=== PATIENT | female | born 1950 | race Caucasian/White ===

== ENCOUNTER 2016-10-12 10:49 | Emergency (ER) | payer OTHER ==
[~2016-10-12] VITALS: Ht 165.1 cm; Wt 88.8 kg
[~2016-10-12 10:49] MED LIST: ADULT LOW DOSE81 M1 PO; ADVAIR HFA120 INHALA IH; AMBIEN5 MG PO; ANTI-FUNGAL141 GM TP; AQUAPHOR OINTM105 GM TP; ASPIR-TRIN325 M1 PO; ASPIRIN EC325 MG PO; ASPIRIN325 MG PO; ATARAX,VISTARIL25 MG PO; ATIVAN0.5 MG PO; AUGMENTIN875 MG PO; CATAPRES0.1 MG PO; CLEOCIN300 MG PO; COLACE100 MG PO; COUMADIN1 MG PO; COUMADIN3 MG PO; COUMADIN4 MG PO; CYCLOBENZAPRINE5 MG PO; DICYCLOMINE HCL10 MG PO; DILAUDID2 MG PO; DURAGESIC25 MCG TD; DURAGESIC50 MCG TD; DURAGESIC75 MCG TD; ECPIRIN325 M1 PO; ESTRACE42.5 GM VG; FENTANYL1 EAC1 TD; FIORICET 50-301 EACH PO; FLEXERIL10 MG PO; FLUOXETINE HCL10 MG PO; FUROSEMIDE40 MG PO; GABAPENTIN100 MG PO; GABAPENTIN300 MG PO; HYDROCODON-ACE1 EAC8 PO; HYDROXYZINE HCL25 MG PO; IMITREX50 MG PO; K-DUR20 MEQ PO; KENALOG,ARISTOC80 GM TP; KLONOPIN0.5 M1 PO; KLONOPIN1 MG PO; KLONOPIN2 MG PO; LAMICTAL25 MG PO; LASIX40 MG PO; LEXAPRO20 MG PO; LIDODERM 5% P1 PATCH TD; LITE COAT ASPI325 M1 PO; LORTAB 10-3251 EACH PO; LOVENOX80 MG/0.8 SC; LUNESTA3 MG PO; MIRALAX255 GM PO; MOBIC15 MG PO; MOTRIN600 MG PO; NAPROXEN500 MG PO; NEURONTIN300 MG PO; NORCO 5/3251 TABLET PO; OMEPRAZOLE20 MG PO; PAROXETINE HCL30 MG PO; PERCOCET 10/1 TABLET PO; PRAVACHOL20 MG PO; PRAVASTATIN SOD40 MG PO; PREDNISONE20 MG PO; PREMARIN VAGI42.5 GM VG; PRILOSEC20 MG PO; PRILOSEC40 MG PO; PROAIR HFA8.5 GM IH; PROMETHAZINE HC25 M1 PO; PROTONIX20 MG PO; QUILLICHEW ER20 MG PO; REMERON45 MG PO; RISPERDAL0.25 MG PO; TIZANIDINE HCL4 M1 PO; VICODIN 5-3001 EACH PO; VICODIN ES 7.51 EAC1 PO; VICODIN HP 11 TABLET PO; VITAMIN D50000 UNI4 PO; WARFARIN PO; WELLBUTRIN SR150 MG PO; WESTCORT15 G1 TP; ZALEPLON10 MG PO; ZANAFLEX2 M1 PO; ZOFRAN4 MG PO; ZOLPIDEM TARTRA10 MG PO; [UNRECOGNIZED DRUG - REMARK]
[2016-10-12 11:50] LABS: HEMATOCRIT 38.3 % (36.0-46.0); MCH 31.8 PG (29.0-34.0); MCHC 33.2 G/DL (30.0-36.0); PLATELET COUNT 280 K/uL (156-360); RBC DIS.WIDTH-CV 12.5 % (11.8-14.6); RBC DIS.WIDTH-SD 43.6 % (39-53); RED BLOOD COUNT 3.99 M/uL (3.80-5.20); WHITE BLOOD COUNT 7.1 K/uL (4.1-10.2)
[2016-10-12 12:00] LABS: CHLORIDE 103 mEq/L (99-109); POTASSIUM 4.3 mEq/L (3.7-5.4); PROTHROMBIN TIME 9.9 (9.2-11.2); PTT 28.5 (25-32); SODIUM 142 mEq/L (136-147)
[2016-10-12 12:02] LABS: GLUCOSE 100 mg/dL (70-99)
[2016-10-12 12:04] LABS: ANION GAP 9 MEQ/L (2-14); TOTAL BILIRUBIN 0.3 mg/dL (0.0-1.0)
[2016-10-12 12:06] LABS: ALKALINE PHOSPHATASE 123 IU/L (3-129); GFR ESTIMATE (CALCULATED) > 59 mL/min/
[2016-10-12 12:07] LABS: UREA NITROGEN (BUN) 9 mg/dL (9-23)
[2016-10-12] MEDS ORDERED: DOXYCYCLINE MO100 MG PO (14:51)
[2016-10-12 15:05] VITALS: BP 128/63
== END 2016-10-12 15:06 | disposition home or self-care (01) ==
LOC: RME 10:49 → EME 10:49 → RME 15:06
PROVIDERS: Physician Assistant
DX: J18.9 Pneumonia, unspecified organism (principal); Z86.73 Personal history of transient ischemic attack (TIA), and cerebral infarction without residual deficits; I25.2 Old myocardial infarction; E78.5 Hyperlipidemia, unspecified; Z79.82 Long term (current) use of aspirin; Z88.8 Allergy status to other drugs, medicaments and biological substances; Z88.1 Allergy status to other antibiotic agents; Z91.018 Allergy to other foods; Z88.5 Allergy status to narcotic agent; Z88.6 Allergy status to analgesic agent; F17.200 Nicotine dependence, unspecified, uncomplicated
CPT/HCPCS: 71275; 80053; 85027; 85610; 85730; 93005; 99281; 99284

== ENCOUNTER 2016-12-19 14:20 | Observation (INO) | payer OTHER ==
[~2016-12-19] VITALS: Ht 165.1 cm; Wt 93.3 kg
[~2016-12-19 14:20] MED LIST changes: +DOXYCYCLINE MO100 MG PO
[2016-12-19 16:13] LABS: HEMATOCRIT 38.2 % (36.0-46.0); MCH 31.8 PG (29.0-34.0); MCHC 33.5 G/DL (30.0-36.0); MCV 94.8 FL (83-99); MEAN PLAT.VOLUME 9.4 uM^3 (9.5-12.4); PLATELET COUNT 221 K/uL (156-360); RBC DIS.WIDTH-SD 44.8 % (39-53); RED BLOOD COUNT 4.03 M/uL (3.80-5.20); WHITE BLOOD COUNT 6.6 K/uL (4.1-10.2)
[2016-12-19 16:24] LABS: CHLORIDE 108 mEq/L (99-109); POTASSIUM 3.9 mEq/L (3.7-5.4); SODIUM 143 mEq/L (136-147)
[2016-12-19 16:25] LABS: GLUCOSE 103 mg/dL (70-99)
[2016-12-19 16:27] LABS: ANION GAP 8 MEQ/L (2-14)
[2016-12-19 16:29] LABS: GFR ESTIMATE (CALCULATED) > 59 mL/min/
[2016-12-19 16:30] LABS: UREA NITROGEN (BUN) 8 mg/dL (9-23)
[2016-12-19 17:00] LABS: TROP-I INTERPRETATION NEGATIVE; TROPONIN-I < 0.01 ng/mL (0.0-0.30)
[2016-12-19 19:00] LABS: ADD MIUA? YES; BILIRUBIN SMALL; BLOOD SMALL; COLOR AMBER ((YELLOW)); GLUCOSE (STRIP) NEGATIVE; KETONES NEGATIVE; LEUKOCYTES NEGATIVE; NITRITE NEGATIVE; PROTEIN (STRIP) 30; SPECIFIC GRAVITY 1.024 (1.000-1.030)
[2016-12-19 20:16] LABS: AMORPHOUS URATES CRYSTALS 1+; BACTERIA 1+ /HPF; CASTS NONE SEEN /LPF; CRYSTALS PRESENT; EPITHELIAL CELLS 1+ /HPF; MUCUS 3+ /LPF; RED BLOOD CELLS 0-5 /HPF (0-5); UCUL ADDED? NO; WHITE BLOOD CELLS 0-5 /HPF (0-5)
[2016-12-19 21:46] LABS: PROTHROMBIN TIME 10.8 SEC (10.2-12.9)
[2016-12-19 21:48] LABS: PTT 28.9 SEC (25-37)
[2016-12-20 00:06] VITALS: BP 148/67
[2016-12-20 00:51] LABS: TROP-I INTERPRETATION NEGATIVE; TROPONIN-I < 0.01 ng/mL (0.0-0.30)
[2016-12-20 04:00] VITALS: BP 145/70
[2016-12-20 06:06] LABS: EOSINOPHIL (%) 4.2 % (0-5); EOSINOPHIL COUNT 0.2 K/uL (0-0.3); HEMATOCRIT 36.3 % (36.0-46.0); IMMATURE GRANULOCYTE (%) 0.4 % (0.0-0.7); INSTRUMENT ABS NEUTROPHIL CT 2.4 K/uL; LYMPHOCYTE COUNT 2.2 K/uL (1.0-2.8); MCH 32.8 PG (29.0-34.0); MCHC 33.3 G/DL (30.0-36.0); MCV 98.4 FL (83-99); MONOCYTE (%) 6.5 % (3-12); MONOCYTE COUNT 0.3 K/uL (0-0.8); NEUTROPHIL (%) 46.3 % (45-76); NEUTROPHIL COUNT 2.4 K/uL (1.8-6.4); PLATELET COUNT 208 K/uL (156-360); RBC DIS.WIDTH-CV 13.3 % (11.8-14.6); RBC DIS.WIDTH-SD 47.8 % (39-53); RED BLOOD COUNT 3.69 M/uL (3.80-5.20); WHITE BLOOD COUNT 5.3 K/uL (4.1-10.2)
[2016-12-20 06:35] LABS: ALKALINE PHOSPHATASE 104 IU/L (3-129); ANION GAP 6 MEQ/L (2-14); CHLORIDE 110 MEQ/L (99-109); DIRECT BILIRUBIN 0.1 mg/dL (0.0-0.3); GFR ESTIMATE (CALCULATED) > 59 mL/min/; GLUCOSE 96 mg/dL (70-99); POTASSIUM 4.4 MEQ/L (3.7-5.4); SAMPLE HEMOLYSIS CHECK 1; SAMPLE ICTERIC CHECK 0; SAMPLE LIPEMIA CHECK 0; SODIUM 144 MEQ/L (136-147); TOTAL BILIRUBIN 0.4 MG/DL (0.0-1.0); UREA NITROGEN (BUN) 7 mg/dL (9-23)
[2016-12-20 06:38] LABS: TROP-I INTERPRETATION NEGATIVE; TROPONIN-I < 0.01 ng/mL (0.0-0.30)
== END 2016-12-20 11:36 | disposition home or self-care (01) ==
LOC: EME 14:20 → 5WEST 18:36 → EDOF 18:36 → ENRESERV 18:45 → 5WEST 20:12
PROVIDERS: Emergency Medicine; Hospitalist; Nurse Practitioner Family
DX: R55 Syncope and collapse (principal); G45.9 Transient cerebral ischemic attack, unspecified; F11.20 Opioid dependence, uncomplicated; S09.90XA Unspecified injury of head, initial encounter; I10 Essential (primary) hypertension; G89.29 Other chronic pain; E11.9 Type 2 diabetes mellitus without complications; Z86.73 Personal history of transient ischemic attack (TIA), and cerebral infarction without residual deficits; K21.9 Gastro-esophageal reflux disease without esophagitis; F32.9 Major depressive disorder, single episode, unspecified; J44.9 Chronic obstructive pulmonary disease, unspecified; Z85.42 Personal history of malignant neoplasm of other parts of uterus; Z88.1 Allergy status to other antibiotic agents; Z88.8 Allergy status to other drugs, medicaments and biological substances
CPT/HCPCS: 70450; 70551; 71020; 71275; 73502; 80048; 80076; 81003; 83880; 84484; 85025; 85027; 85379; 85610; 85651; 85730; 93005; 99202; 99281; 99285; G0378; J0696; J1650; J7030; J7050; J7512

== ENCOUNTER 2017-01-23 01:14 | Emergency (ER) | payer OTHER ==
[~2017-01-23] VITALS: Ht 167.6 cm; Wt 87.8 kg
[2017-01-23 03:11] LABS: EOSINOPHIL (%) 2.6 % (0-5); EOSINOPHIL COUNT 0.2 K/uL (0-0.3); HEMATOCRIT 39.1 % (36.0-46.0); IMMATURE GRANULOCYTE (%) 0.3 % (0.0-0.7); INSTRUMENT ABS NEUTROPHIL CT 5.5 K/uL; LYMPHOCYTE COUNT 2.9 K/uL (1.0-2.8); MCH 32.1 PG (29.0-34.0); MCHC 33.8 G/DL (30.0-36.0); MCV 95.1 FL (83-99); MEAN PLAT.VOLUME 8.9 uM^3 (9.5-12.4); MONOCYTE (%) 8.1 % (3-12); MONOCYTE COUNT 0.8 K/uL (0-0.8); NEUTROPHIL COUNT 5.5 K/uL (1.8-6.4); PLATELET COUNT 223 K/uL (156-360); RBC DIS.WIDTH-CV 12.8 % (11.8-14.6); RBC DIS.WIDTH-SD 44.7 % (39-53); RED BLOOD COUNT 4.11 M/uL (3.80-5.20); WHITE BLOOD COUNT 9.4 K/uL (4.1-10.2)
[2017-01-23 03:19] LABS: CHLORIDE 100 mEq/L (99-109); SODIUM 141 mEq/L (136-147)
[2017-01-23 03:21] LABS: GLUCOSE 95 mg/dL (70-99)
[2017-01-23 03:22] LABS: ANION GAP 11 MEQ/L (2-14)
[2017-01-23 03:25] LABS: GFR ESTIMATE (CALCULATED) > 59 mL/min/
[2017-01-23 03:26] LABS: UREA NITROGEN (BUN) 14 mg/dL (9-23)
[2017-01-23 03:46] LABS: ADD MIUA? YES; BILIRUBIN NEGATIVE; BLOOD SMALL; COLOR AMBER ((YELLOW)); GLUCOSE (STRIP) NEGATIVE; KETONES NEGATIVE; LEUKOCYTES NEGATIVE; NITRITE NEGATIVE; PROTEIN (STRIP) NEGATIVE; UROBILINOGEN 0.2 MG/DL (0.2-1.0)
[2017-01-23 04:15] LABS: RED BLOOD CELLS 0-5 /HPF (0-5)
[2017-01-23 04:17] LABS: AMORPHOUS URATES CRYSTALS 3+; BACTERIA 3+ /HPF; CASTS NONE SEEN /LPF; CRYSTALS PRESENT; EPITHELIAL CELLS 2+ /HPF; MUCUS NONE SEEN /LPF; UCUL ADDED? YES; WHITE BLOOD CELLS 0-5 /HPF (0-5)
[2017-01-23] MEDS ORDERED: FLEXERIL10 MG PO (05:24)
[2017-01-23] MEDS ORDERED: LIDOCAINE700 MG TP (05:24)
[2017-01-23 05:57] VITALS: BP 112/70
== END 2017-01-23 06:00 | disposition home or self-care (01) ==
LOC: EME 01:14
PROVIDERS: Emergency Medicine
DX: M62.830 Muscle spasm of back (principal); M54.30 Sciatica, unspecified side; F17.200 Nicotine dependence, unspecified, uncomplicated; Z88.6 Allergy status to analgesic agent; Z88.1 Allergy status to other antibiotic agents
CPT/HCPCS: 72100; 80048; 81003; 83605; 85025; 87040; 87086; 99281; 99284

== ENCOUNTER 2017-06-12 20:25 | Observation (INO) | payer OTHER ==
[~2017-06-12] VITALS: Ht 167.6 cm; Wt 97.1 kg
[~2017-06-12 20:25] MED LIST changes: +LIDOCAINE700 MG TP
[2017-06-12 22:09] LABS: HEMATOCRIT 37.2 % (36.0-46.0); HEMOGLOBIN 12.8 G/DL (11.9-15.5); MCH 33.2 PG (29.0-34.0); MCHC 34.4 G/DL (30.0-36.0); MCV 96.6 FL (83-99); PLATELET COUNT 186 K/uL (156-360); RBC DIS.WIDTH-CV 12.5 % (11.8-14.6); RBC DIS.WIDTH-SD 44.4 % (39-53); RED BLOOD COUNT 3.85 M/uL (3.80-5.20); WHITE BLOOD COUNT 8.1 K/uL (4.1-10.2)
[2017-06-12 22:19] LABS: CHLORIDE 103 mEq/L (99-109); POTASSIUM 3.2 mEq/L (3.7-5.4); SODIUM 139 mEq/L (136-147)
[2017-06-12 22:21] LABS: GLUCOSE 119 mg/dL (70-99)
[2017-06-12 22:25] LABS: CREATININE 0.9 mg/dL (0.6-1.3); GFR ESTIMATE (CALCULATED) > 59 mL/min/; UREA NITROGEN (BUN) 10 mg/dL (9-23)
[2017-06-12 22:33] LABS: TROP-I INTERPRETATION NEGATIVE; TROPONIN-I < 0.01 ng/mL (0.0-0.30)
[2017-06-13] MEDS ORDERED: GABAPENTIN800 MG PO (01:10)
[2017-06-13] MEDS ORDERED: MORPHINE SULFAT15 M1 PO (01:10)
[2017-06-13] MEDS ORDERED: MIRTAZAPINE45 MG PO (01:11)
[2017-06-13] MEDS ORDERED: PRAVASTATIN SOD20 MG PO (01:12)
[2017-06-13] MEDS ORDERED: OXYCODONE-APAP1 EACH PO (01:13)
[2017-06-13] MEDS ORDERED: METOPROLOL TART25 MG PO (01:14)
[2017-06-13] MEDS ORDERED: FUROSEMIDE40 MG PO (01:15)
[2017-06-13] MEDS ORDERED: VENLAFAXINE HC100 MG PO (01:16)
[2017-06-13] MEDS ORDERED: OMEPRAZOLE40 M1 PO (01:17)
[2017-06-13] MEDS ORDERED: TIZANIDINE HCL4 MG PO (01:18)
[2017-06-13] MEDS ORDERED: SYMBICORT60 INHALAT IH (01:20)
[2017-06-13] MEDS ORDERED: ERGOCALCIF50000 UNIT PO (01:21)
[2017-06-13 02:34] VITALS: BP 128/76
[2017-06-13 05:39] LABS: HDL CHOLESTEROL 41 MG/DL (Desirable>=50); LDL CHOLESTEROL 114 mg/dL (Desirable<100); NON-HDL CHOLESTEROL 127 mg/dL (Desirable<160); TOTAL CHOLESTEROL 168 mg/dL (Desirable<200); TRIGLYCERIDES 64 MG/DL (Normal: <150)
[2017-06-13 07:27] VITALS: BP 154/78
[2017-06-13 11:25] VITALS: BP 130/68
[2017-06-13] MEDS ORDERED: ZITHROMAX500 MG PO (14:24)
[2017-06-13] MEDS ORDERED: PREDNISONE10 MG PO (14:25)
[2017-06-13] MEDS ORDERED: VENTOLIN HFA18 GM IH (14:25)
[2017-06-13] MEDS ORDERED: ASPIRIN325 MG PO (14:26)
== END 2017-06-13 16:11 | disposition home or self-care (01) ==
LOC: EME 20:25 → EDOF 06-13 00:10 → ENRESERV 06-13 00:18 → 5WEST 06-13 02:11
PROVIDERS: Emergency Medicine; Physician Assistant
DX: R29.810 Facial weakness (principal); G43.109 Migraine with aura, not intractable, without status migrainosus; J44.9 Chronic obstructive pulmonary disease, unspecified; R13.10 Dysphagia, unspecified; I10 Essential (primary) hypertension; F32.9 Major depressive disorder, single episode, unspecified; E78.5 Hyperlipidemia, unspecified; G89.29 Other chronic pain; Z86.73 Personal history of transient ischemic attack (TIA), and cerebral infarction without residual deficits; K21.9 Gastro-esophageal reflux disease without esophagitis; Z85.42 Personal history of malignant neoplasm of other parts of uterus; Z90.710 Acquired absence of both cervix and uterus; Z90.49 Acquired absence of other specified parts of digestive tract; Z82.49 Family history of ischemic heart disease and other diseases of the circulatory system; Z80.9 Family history of malignant neoplasm, unspecified; Z83.3 Family history of diabetes mellitus; F17.210 Nicotine dependence, cigarettes, uncomplicated; Z79.82 Long term (current) use of aspirin; Z88.1 Allergy status to other antibiotic agents; Z88.5 Allergy status to narcotic agent; Z88.8 Allergy status to other drugs, medicaments and biological substances; E73.9 Lactose intolerance, unspecified
CPT/HCPCS: 70360; 70450; 70551; 71046; 80048; 80061; 83036; 84484; 85027; 85379; 87502; 92610 GN; 93005; 93880; 94640; 94640 76; 94799; 99202; 99281; 99285; G0378; J0456; J1650; J2270; J2930; J7030

== ENCOUNTER → 2017-07-09 | Outpatient (CLI) | payer OTHER ==
[~2017-07-09] VITALS: Ht 167.6 cm; Wt 88.0 kg
[~2017-07-09] MED LIST changes: +BUSPAR5 MG PO; +ERGOCALCIF50000 UNIT PO; +GABAPENTIN800 MG PO; +GENERLAC10 GM/15 M PO; +METHYLPHENIDATE20 M6 PO; +METOPROLOL TART25 MG PO; +MIRTAZAPINE45 MG PO; +MORPHINE SULFAT15 M1 PO; +NEURONTIN800 MG PO; +OMEPRAZOLE40 M1 PO; +OXYCODONE-APAP1 EACH PO; +PRAVASTATIN SOD20 MG PO; +PREDNISONE10 MG PO; +SYMBICORT60 INHALAT IH; +TIZANIDINE HCL4 MG PO; +VENLAFAXINE HC100 MG PO; +VENTOLIN HFA18 GM IH; +ZITHROMAX500 MG PO
== END | disposition home or self-care (01) ==
LOC: AMB 06-29 08:00
PROC: 0DB68ZX Excision of Stomach, Via Natural or Artificial Opening Endoscopic, Diagnostic (ICD-10-PCS; principal; 2017-07-09)
DX: R13.10 Dysphagia, unspecified (principal); K29.70 Gastritis, unspecified, without bleeding; G89.29 Other chronic pain; M54.5 Low back pain; Z79.891 Long term (current) use of opiate analgesic; F17.200 Nicotine dependence, unspecified, uncomplicated; E66.3 Overweight; Z68.34 Body mass index [BMI] 34.0-34.9, adult; R73.03 Prediabetes; Z86.73 Personal history of transient ischemic attack (TIA), and cerebral infarction without residual deficits; E53.9 Vitamin B deficiency, unspecified; E55.9 Vitamin D deficiency, unspecified; Z90.49 Acquired absence of other specified parts of digestive tract; Z90.710 Acquired absence of both cervix and uterus; Z90.79 Acquired absence of other genital organ(s); Z90.722 Acquired absence of ovaries, bilateral; Z86.718 Personal history of other venous thrombosis and embolism; Z79.82 Long term (current) use of aspirin; Z83.3 Family history of diabetes mellitus; Z82.49 Family history of ischemic heart disease and other diseases of the circulatory system; Z88.1 Allergy status to other antibiotic agents; Z88.5 Allergy status to narcotic agent; Z88.6 Allergy status to analgesic agent; Z88.8 Allergy status to other drugs, medicaments and biological substances
CPT/HCPCS: 88305; 88342 TC; 94640; J2250; J3010

== ENCOUNTER 2017-11-14 01:04 | Emergency (ER) | payer OTHER ==
[~2017-11-14] VITALS: Ht 170.2 cm; Wt 90.9 kg
[2017-11-14 01:24] LABS: BASOPHIL (%) 0.5 % (0-1); EOSINOPHIL COUNT 0.2 K/uL (0-0.3); HEMATOCRIT 40.9 % (36.0-46.0); HEMOGLOBIN 14.3 G/DL (11.9-15.5); IMMATURE GRANULOCYTE (%) 0.2 % (0.0-0.7); LYMPHOCYTE (%) 36.7 % (15-42); LYMPHOCYTE COUNT 2.9 K/uL (1.0-2.8); MCH 33.2 PG (29.0-34.0); MCV 94.9 FL (83-99); MONOCYTE (%) 7.2 % (3-12); MONOCYTE COUNT 0.6 K/uL (0-0.8); NEUTROPHIL (%) 52.4 % (45-76); NEUTROPHIL COUNT 4.2 K/uL (1.8-6.4); PLATELET COUNT 249 K/uL (156-360); RBC DIS.WIDTH-CV 12.8 % (11.8-14.6); RBC DIS.WIDTH-SD 44.2 % (39-53); RED BLOOD COUNT 4.31 M/uL (3.80-5.20)
[2017-11-14 01:33] LABS: CHLORIDE 107 mEq/L (99-109); POTASSIUM 3.3 mEq/L (3.7-5.4); PTT 28.4 SEC (25-37); SODIUM 144 mEq/L (136-147)
[2017-11-14 01:34] LABS: GLUCOSE 147 mg/dL (70-99)
[2017-11-14 01:38] LABS: CREATININE 0.8 mg/dL (0.6-1.3); GFR ESTIMATE (CALCULATED) > 59 mL/min/
[2017-11-14 01:39] LABS: UREA NITROGEN (BUN) 7 mg/dL (9-23)
[2017-11-14 01:46] LABS: TROP-I INTERPRETATION NEGATIVE; TROPONIN-I < 0.01 ng/mL (0.0-0.30)
[2017-11-14 05:06] LABS: TROP-I INTERPRETATION NEGATIVE; TROPONIN-I < 0.01 ng/mL (0.0-0.30)
[2017-11-14 05:42] VITALS: BP 125/80
== END 2017-11-14 05:43 | disposition home or self-care (01) ==
LOC: EME 01:04
PROVIDERS: Emergency Medicine
DX: R07.9 Chest pain, unspecified (principal); J45.909 Unspecified asthma, uncomplicated; I50.9 Heart failure, unspecified; K21.9 Gastro-esophageal reflux disease without esophagitis; E78.5 Hyperlipidemia, unspecified; I25.2 Old myocardial infarction; G43.909 Migraine, unspecified, not intractable, without status migrainosus; F17.200 Nicotine dependence, unspecified, uncomplicated; Z86.73 Personal history of transient ischemic attack (TIA), and cerebral infarction without residual deficits; Z85.42 Personal history of malignant neoplasm of other parts of uterus; Z90.49 Acquired absence of other specified parts of digestive tract; Z88.5 Allergy status to narcotic agent; Z88.1 Allergy status to other antibiotic agents
CPT/HCPCS: 71045; 80048; 84484; 85025; 85610; 85730; 93005; 99281; 99284

== ENCOUNTER 2017-12-30 21:29 | Emergency (ER) | payer OTHER ==
[~2017-12-30] VITALS: Ht 167.6 cm; Wt 99.7 kg
[2017-12-31] MEDS ORDERED: ROBAXIN750 MG PO (01:41)
[2017-12-31 01:47] VITALS: BP 130/82
== END 2017-12-31 01:48 | disposition home or self-care (01) ==
LOC: EME 21:29
DX: S39.012A Strain of muscle, fascia and tendon of lower back, initial encounter (principal); G89.29 Other chronic pain; W01.0XXA Fall on same level from slipping, tripping and stumbling without subsequent striking against object, initial encounter; I25.2 Old myocardial infarction; E78.5 Hyperlipidemia, unspecified; I50.9 Heart failure, unspecified; K21.9 Gastro-esophageal reflux disease without esophagitis; Z85.42 Personal history of malignant neoplasm of other parts of uterus; J45.909 Unspecified asthma, uncomplicated; Z86.73 Personal history of transient ischemic attack (TIA), and cerebral infarction without residual deficits; Z88.5 Allergy status to narcotic agent; Z88.1 Allergy status to other antibiotic agents; F17.200 Nicotine dependence, unspecified, uncomplicated
CPT/HCPCS: 72131; 99281; 99284; J3010